=== PATIENT | male | born 1960 | race Caucasian/White ===

== ENCOUNTER 2019-10-19 11:29 | Inpatient (IN) | payer OTHER, SELFPAY ==
[2019-10-19] VITALS (24 sets, daily range): BP systolic 144–189; BP diastolic 85–121; PULSE 63–90; RESP 13–35; TEMP 36.8–37.2; O2SAT 83–96; BMI 42.9
--- NOTE | 2019-10-19 12:08 | ECG_ITS ---
Measurements Intervals [place] Rate: 84 P: 51 MD: 160 QRS: 66 QRSD: 121 T: 147 QT: 379 QTc: 448 SINUS RHYTHM POSSIBLE LEFT ATRIAL ENLARGEMENT [-0.1mV P WAVE IN V1/V2] PROBABLE INFERIOR MYOCARDIAL INFARCTION [35 ms Q WAVE IN II/aVF], PROBABLY OLD MODERATE T-WAVE ABNORMALITY, CONSIDER LATERAL ISCHEMIA Compared to ECG 06/25/2019 06:06:36 T-wave abnormality now present Possible ischemia now present First degree AV block no longer present Myocardial infarct finding still present Electronically Signed On 10-19-2019 15:28:37 REGULATORY LAW SPECIALIST by Sherrie Macias M.D. [id number]
[2019-10-19 12:39] LABS: Add Urine Microscopic? YES; Bilirubin Urine Neg (NEGATIVE); Blood Urine Neg (Negative); Glucose Urine UA Norm (Normal); Ketones Urine Negative (Negative); Leukocyte Esterase Urine Negative (Negative); Nitrate Urine Negative (Negative); Protein Urine Trace (Negative); Urine Appearance Clear (CLEAR); Urine Color Yellow (Yellow); Urobilinogen Urine Norm (Negative); pH Urine 5 (5-7)
[2019-10-19 12:45] LABS: RBC Urine 0-4 /hpf (0-2); Squamous Epithelial Cell Urine 0-4 (0-5)
[2019-10-19 12:46] LABS: Add Urine Culture? No; Bacteria Urine TRACE; Mucus Urine TRACE
[2019-10-19 13:06] LABS: Basophils # 0.1 10^3/uL (0.0-0.1); Basophils % 0.7 %; Eosinophils # 0.3 10^3/uL (0.0-0.8); Eosinophils % 3.7 %; Hematocrit 41.3 % (42.0-52.0); Hemoglobin 13.3 g/dL (11.7-16.6); Lymphocytes # 1.8 10^3/uL (0.8-4.8); Mean Corpuscular HGB Conc 32.2 g/dL (30.0-36.0); Mean Corpuscular Hemoglobin 27.7 pg (28.0-34.0); Mean Corpuscular Volume 85.9 fL (80-94); Mean Platelet Volume 10.6 fL (7.4-10.4); Monocytes # 0.5 10^3/uL (0.2-0.9); Monocytes % 6.7 %; Neutrophils # 4.6 10^3/uL (1.8-7.7); Neutrophils % 63.6 %; Nucleated Red Blood Cells % 0 %; Platelet Count 194 10^3/cmm (130-400); Red Blood Count 4.81 10^6/uL (4.1-5.3); Red Cell Distribution Width 13.8 % (12.1-15.1); White Blood Count 7.2 10^3/uL (4.0-10.0)
[2019-10-19 13:39] LABS: Alanine Aminotransferase 22 U/L (0-41); Albumin Level 3.6 g/dL (3.5-5.2); Alkaline Phosphatase 37 IU/L (40-130); Anion Gap 16.1 (5-19); Aspartate Amino Transferase 18 U/L (0-40); Blood Urea Nitrogen 15 mg/dL (8-23); Calcium 9.6 mg/dL (8.5-10.5); Carbon Dioxide 23 mmol/L (22-29); Chloride 105 mmol/L (98-107); Globulin 3.9 g/dL (1.3-4.6); Glomerular Filtration Rate 51.7 mL/min (90-130); Glucose 151 mg/dL (65-115); Magnesium 2.2 mg/dL (1.7-2.3); NT Pro B Type Natriuretic Pept 2110 pg/mL (0-125); Potassium 4.1 mmol/L (3.5-5.1); Sodium 140 mmol/L (136-145); Thyroid Stimulating Hormone 1.02 uIU/mL (0.27-4.20); Total Bilirubin 0.7 mg/dL (0.15-1.2); Total Protein 7.5 g/dL (6.6-8.7)
[2019-10-19 13:58] LABS: Troponin(5th) Baseline 289 ng/mL (0-15)
--- NOTE | 2019-10-19 14:00 | ED_ITS ---
Entered by Ruthann Lino, acting as scribe for Link Alvarado MD, [facility] [place]PI - SOB/Dyspnea General: Chief Complaint: Shortness of Breath/Dyspnea Stated Complaint: SOB swelled left thumb Time Seen by Provider: 10/19/19 14:00 Source: patient Mode of arrival: ambulatory Limitations: no limitations History of Present Illness: HPI Narrative: 59 yo Male presents to ED with complaint of shortness of breath. Pt states that it isn't necessarily his heart, but he is having shortness of breath and was barely able to make it walking into the ED room from the waiting room. 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 Pt states that 6 months ago he was playing basketball and now he can barely pick and shovel man a basketball. Pt states that he does get chest pain when he becomes short of breath. Pt states if he eats meat, bread, pasta or anything hard he has difficulty breathing laying down. Pt states that he has pain when laying down. Pt states that he has had a TIA in the past and has had a bypass surgery before but there are no records because it was too far back and the hospital got rid of them. Pt states that he was assigned to Dr. Macias the last time he was here but he never went to follow up with her. MD elicited complaint: shortness of breath and chest pain Onset (ago): month(s) Context: occurred during exertion Timing: intermittent Exacerbating factors: lying flat, exertion and other (eating) Relieving factors: upright position Associated symptoms: Reports chest pain and orthopnea; Deny abdominal pain, fever(s), nausea, polydipsia, polyuria or vomiting Treatment prior to arrival: none Review of Systems General: Reports: 10 or more systems reviewed and unremarkable except in HPI and below Const: Denies: fever, chills or body aches Eyes: Denies: change in vision or blurry vision ENMT: Denies: throat pain, enlarged tonsils, painful swallowing, hoarseness, mouth pain or swelling of lips/tongue Card: Reports: chest pain, shortness of breath on exertion and shortness of breath when lying down Resp: Reports: shortness of breath; Denies: productive cough or non-productive cough GI: Denies: abdominal pain, nausea or vomiting : Denies: flank pain, painful urination, urinary frequency, urinary urgency or urinary hesitancy Musc: Denies: neck pain, back pain or extremity swelling Skin/Breast: Denies: rash, itching or redness Neuro: Denies: headache, numbness in extremities or weakness in extremities Endo: Denies: excessive urination, excessive thirst or tired all the time PFSH ED PFSH: Medical History (Updated 10/19/19 @ 21:50 by Link Alvarado MD, [facility] [place]) Compartment syndrome of left lower extremity Non-smoker Toe fracture, left Surgical History (Updated 10/19/19 @ 21:24 by Amrit Chavis MD) Hx of tonsillectomy S/P CABG x 2 Social History Smoking and tobacco status: never smoked Physical Exam Const: COMMON NORMALS: no apparent distress, average body habitus, oriented x3, no limitations, healthy appearing, alert and well nourished HENMT: COMMON NORMALS: normocephalic, head/scalp atraumatic and moist oral mucous membranes HEAD & SCALP: normocephalic and atraumatic Eye: COMMON NORMALS: PERRL, EOMs intact bilaterally, conjunctivae normal and no scleral icterus CONJUNCTIVA: Yes conjunctivae normal PUPIL: Yes PERRL Neck/C-Spine: COMMON NORMALS: full ROM, supple, no meningeal signs, no JVD and no carotid bruits Chest: COMMONS NORMALS: inspection of chest normal and palpation of chest normal Resp: COMMON NORMALS: normal respiratory effort, no retractions, no use of accessory muscles, clear to auscultation bilaterally and percussion normal AUSCULTATION: clear to auscultation bilaterally PERCUSSION: percussion normal Cardio: COMMON NORMALS: no JVD, regular rate, regular rhythm, S1 normal heart sound, S2 normal heart sound, no gallops, no clicks, no murmurs, no rub and peripheral pulses 2+ throughout RATE: regular rate RHYTHM: regular rhythm HEART SOUNDS: S1 normal and S2 normal PERIPHERAL PULSES: pulses 2+ throughout GI: COMMON NORMALS: normal to inspection, nondistended, normoactive bowel sounds, soft to palpation, non-tender, no hepatosplenomegaly, no masses and no bruits PALPATION: Yes soft and Yes no hepatosplenomegaly : COMMON NORMALS: Yes no CVA tenderness BLADDER/KIDNEY EXAM: Yes no CVA tenderness Back/Pelvis: COMMON NORMALS: no CVA tenderness Extremity: COMMON NORMALS: normal to inspection, full ROM, normal capillary refill, no calf tenderness and no pedal edema OTHER: Left thumb with a 4 cm cystic lesion consistent duct is not tender, inflamed, or warm. Neuro: COMMON NORMALS: oriented x3 SENSORIUM/ORIENTATION: Yes alert ME NINGEAL SIGNS: Yes no meningeal signs Skin: COMMON NORMALS: no rashes or lesions noted, no wounds, skin turgor normal, no jaundice, no petechiae and no mottling GENERAL SKIN EXAM: no rashes or lesions noted and turgor normal Course Consultations: Consultation #1: Dr. Thomas, Hospitalist-left message Left 2nd message at 16:24 He kindly accepted patient to his service, however we found out that the patient was Dr. Chavis's patient so we will call Dr. Chavis Time: 15:20 Consultation #2: Dr. Chavis, his primary care provider. He kindly accepted patient to his service. Vital Signs: Vital signs: Vital Signs Temperature 99.0 F 10/19/19 18:02 Pulse Rate 77 10/19/19 21:00 Respiratory Rate 21 H 10/19/19 21:00 Blood Pressure 188/108 10/19/19 21:00 Pulse Oximetry 91 10/19/19 21:00 MDM - SOB/Dyspnea MDM Narrative: Medical decision making narrative: 59-year-old male with progressive dyspnea on exertion that has been going on for 3 to 4 months. However in the last few days his dyspnea on exertion has gotten much worse and he is barely able to walk a few feet before he gets absolutely short of breath. He has a prior history of an [place] 20 years ago status post CABG. He last saw his three dimensional map modeler about 14 years ago. 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 The patient had critically elevated troponins and a delta at that was borderline significant. I believe the patient has cardiac ischemia will benefit from further cardiac work-up with stress test and possible PCI. He is therefore being admitted for further cardiac work-up. Lab Data: Labs: Lab Results 10/19/19 10/19/19 10/19/19 Range/Units 12:16 12:49 12:49 WBC 7.2 (4.0-10.0) 10^3/ uL RBC 4.81 (4.1-5.3) 10^6/u L Hgb 13.3 (11.7-16.6) g/dL Hct 41.3 L (42.0-52.0) % MCV 85.9 (80-94) fL MCH 27.7 L (28.0-34.0) pg MCHC 32.2 (30.0-36.0) g/dL RDW 13.8 (12.1-15.1) % Plt Count 194 (130-400) 10^3/c mm MPV 10.6 H (7.4-10.4) fL Neut % (Auto) 63.6 % Lymph % (Auto) 25.0 % [place] % (Auto) 6.7 % Eos % (Auto) 3.7 % Baso % (Auto) 0.7 % Neut # (Auto) 4.6 (1.8-7.7) 10^3/u L Lymph # (Auto) 1.8 (0.8-4.8) 10^3/u L [place] # (Auto) 0.5 (0.2-0.9) 10^3/u L Eos # (Auto) 0.3 (0.0-0.8) 10^3/u L Baso # (Auto) 0.1 (0.0-0.1) 10^3/u L Nucleated RBC % (a uto) 0 % Nucleated RBCs # 0.0 /100WBC D-Dimer (0-0.59) ug/mIFE U Sodium 140 (136-145) mmol/L Potassium 4.1 (3.5-5.1) mmol/L Chloride 105 (98-107) mmol/L Carbon Dioxide 23 (22-29) mmol/L Anion Gap 16.1 (5-19) BUN 15 (8-23) mg/dL Creatinine 1.4 H (0.7-1.2) mg/dL GFR Calculation 51.7 L (90-130) mL/min Glucose 151 H (65-115) mg/dL Calcium 9.6 (8.5-10.5) mg/dL Magnesium 2.2 (1.7-2.3) mg/dL Total Bilirubin 0.7 (0.15-1.2) mg/dL AST 18 (0-40) U/L ALT 22 (0-41) U/L Alkaline Phosphata se 37 L (40-130) IU/L Troponin T Baselin e (0-15) ng/mL Troponin T 120 Min wrangell (0-15) ng/mL Delta Troponin T (0-10) ABS# NT-Pro-B Natriuret Pep 2110 H (0-125) pg/mL Total Protein 7.5 (6.6-8.7) g/dL Albumin 3.6 (3.5-5.2) g/dL Globulin 3.9 (1.3-4.6) g/dL TSH 1.02 (0.27-4.20) uIU/ mL Urine Color Yellow (Yellow) Urine Appearance Clear (CLEAR) Urine pH 5 (5-7) Ur Specific Gravit y 1.020 (1.005-1.030) Urine Protein Trace (Negative) Urine Glucose (UA) Norm (Normal) Urine Ketones Negative (Negative) Urine Blood Neg (Negative) Urine Nitrate Negative (Negative) Urine Bilirubin Neg (NEGATIVE) Urine Urobilinogen Norm (Negative) mg/dL Ur Leukocyte La ase Negative (Negative) Urine RBC 0-4 H (0-2) /hpf Urine WBC None (0-5) /hpf Ur Squamous Epith Cells 0-4 H (0-5) Urine Bacteria Trace (NONE) Urine Mucus Trace 10/19/19 10/19/19 10/19/19 Range/Units 12:49 14:34 14:34 WBC (4.0-10.0) 10^3/ uL RBC (4.1-5.3) 10^6/u L Hgb (11.7-16.6) g/dL Hct (42.0-52.0) % MCV (80-94) fL MCH (28.0-34.0) pg MCHC (30.0-36.0) g/dL RDW (12.1-15.1) % Plt Count (130-400) 10^3/c mm MPV (7.4-10.4) fL Neut % (Auto) % Lymph % (Auto) % [place] % (Auto) % Eos % (Auto) % Baso % (Auto) % Neut # (Auto) (1.8-7.7) 10^3/u L Lymph # (Auto) (0.8-4.8) 10^3/u L [place] # (Auto) (0.2-0.9) 10^3/u L Eos # (Auto) (0.0-0.8) 10^3/u L Baso # (Auto) (0.0-0.1) 10^3/u L Nucleated RBC % (a uto) % Nucleated RBCs # /100WBC D-Dimer 0.45 (0-0.59) ug/mIFE U Sodium (136-145) mmol/L Potassium (3.5-5.1) mmol/L Chloride (98-107) mmol/L Carbon Dioxide (22-29) mmol/L Anion Gap (5-19) BUN (8-23) mg/dL Creatinine (0.7-1.2) mg/dL GFR Calculation (90-130) mL/min Glucose (65-115) mg/dL Calcium (8.5-10.5) mg/dL Magnesium (1.7-2.3) mg/dL Total Bilirubin (0.15-1.2) mg/dL AST (0-40) U/L ALT (0-41) U/L Alkaline Phosphata se (40-130) IU/L Troponin T Baselin e 289 H* (0-15) ng/mL Troponin T 120 Min wrangell 298.1 H (0-15) ng/mL Delta Troponin T 9.1 (0-10) ABS# NT-Pro-B Natriuret Pep (0-125) pg/mL Total Protein (6.6-8.7) g/dL Albumin (3.5-5.2) g/dL Globulin (1.3-4.6) g/dL TSH (0.27-4.20) uIU/ mL Urine Color (Yellow) Urine Appearance (CLEAR) Urine pH (5-7) Ur Specific Gravit y (1.005-1.030) Urine Protein (Negative) Urine Glucose (UA) (Normal) Urine Ketones (Negative) Urine Blood (Negative) Urine Nitrate (Negative) Urine Bilirubin (NEGATIVE) Urine Urobilinogen (Negative) mg/dL Ur Leukocyte La ase (Negative) Urine RBC (0-2) /hpf Urine WBC (0-5) /hpf Ur Squamous Epith Cells (0-5) Urine Bacteria (NONE) Urine Mucus Imaging Data^: CXR: Radiologist's impression: [place] [address] XRay Report Signed Patient: Sharon Pichardo #: [id number] : 1960Acct#:[id number] Age/Sex: 59 / MADM Date: 10/19/19 Loc: [facility]/Bed: Attending Dr: Ordering Provider/Ordering MD: Link Alvarado MD, [facility] [place] Date of Service: 10/19/19 Procedure(s): XR chest 2V* 41927 Accession Number(s): [id number] Report Number: [id number] PROCEDURE INFORMATION: Exam: XR Chest, 2 Views Exam date and time: 10/19/2019 2:29 PM Age: 59 years old Clinical indication: Shortness of breath; Prior surgery; Surgery date: 6+ months; Surgery type: Bypass, date not provided TECHNIQUE: Imaging protocol: XR of the chest Views: 2 views. COMPARISON: CR Chest 1 [place] [id number] 06/24/2019 11:15 AM FINDINGS: Lungs: Possible COPD with moderate flattening of hemidiaphragms. Pleural space: Blunting of the costophrenic angles suggesting small pleural effusions. Heart/Mediastinum: Prior CABG with sternotomy sutures in place. Moderate cardiomegaly, unchanged. Bones/joints: Thoracolumbar region dextroscoliosis, chronic. XR/XR chest 2V* [id number] IMPRESSION: 1.) Possible small pleural effusions. 2.) Additional chronic findings including prior CABG and moderate cardiomegaly. Probable COPD. Dictated By:Milo Powell MD Signed By:Milo Powell MDSigned Date/Time:10/19/191544 DD/ 43 EKG Data^: EKG 1: Attestation: I personally reviewed and interpreted this EKG as follows: EKG Interpretation Date: 10/19/19 EKG interpretation time: 11:45 Prior EKG tracings: not available for review Computer Generated Interpretation: [address] [address] Electrocardiograph Report Signed Patient: Sharon Pichardo #: [id number] : 1960Acct#:[id number] Age/Sex: 59 / MADM Date: 10/19/19 Loc: [facility]/Bed: Attending Dr: Ordering Provider/Ordering MD: Timothy Dubose NP Date of Service: 10/19/19 Procedure(s): ECG 12 lead EKG Accession Number(s): [id number] Report Number: [id number] Measurements Intervals [place] Rate: 72 P: 49 TN: 172 QRS: 61 QRSD: 116 T: 166 QT: 375 QTc: 411 SINUS RHYTHM POSSIBLE INFERIOR MYOCARDIAL INFARCTION , PROBABLY OLD [30 ms Q WAVE IN II/aVF] MODERATE T-WAVE ABNORMALITY, CONSIDER LATERAL ISCHEMIA [-0.1+ mV T WAVE IN I/ I/aVL/V5/V6] Compared to ECG 10/19/2019 11:45:37 No significant changes Electronically Signed On 10-19-2019 15:35:03 TECHNICAL FELLOW by Sherrie Macias M.D. EKG 2: Attestation: I personally reviewed and interpreted this EKG as follows: EKG Interpretation Date: 10/19/19 EKG interpretation time: 13:52 Interpretation: unchanged from earlier today Discharge Plan Discharge Patient Disposition: Admitted As Inpatient Admit Provider: Eben Thomas Clinical Impression: STUART (dyspnea on exertion), Elevated troponin Condition: Stable Interventions: ED Discharge Assessment Last Done: 10/19/19 18:02 Discharge Date/Time: 10/19/19 18:05 Coding Level of Care Code ED Pig Sticker for Chg Fwd Exam Comprehensive The documentation recorded by the Zoie childs Carmen, accurately reflects the service I personally performed and the decisions made by Christiano bobby Adegoke I, MD, [facility] [place] Oct 19, 2019 11:29
--- NOTE | 2019-10-19 14:08 | ECG_ITS ---
Measurements Intervals [place] Rate: 72 P: 49 TX: 172 QRS: 61 QRSD: 116 T: 166 QT: 375 QTc: 411 SINUS RHYTHM POSSIBLE INFERIOR MYOCARDIAL INFARCTION , PROBABLY OLD [30 ms Q WAVE IN II/aVF] MODERATE T-WAVE ABNORMALITY, CONSIDER LATERAL ISCHEMIA [-0.1+ mV T WAVE IN I/ I/aVL/V5/V6] Compared to ECG 10/19/2019 11:45:37 No significant changes Electronically Signed On 10-19-2019 15:35:03 DISPLAY FABRICATION SUPERVISOR by Sherrie Macias M.D. [email or web address]
--- NOTE | 2019-10-19 14:13 | XRR_ITS ---
PROCEDURE INFORMATION: Exam: XR Chest, 2 Views Exam date and time: 10/19/2019 2:29 PM Age: 59 years old Clinical indication: Shortness of breath; Prior surgery; Surgery date: 6+ months; Surgery type: Bypass, date not provided TECHNIQUE: Imaging protocol: XR of the chest Views: 2 views. COMPARISON: CR Chest 1 [place] [id number] 06/24/2019 11:15 AM FINDINGS: Lungs: Possible COPD with moderate flattening of hemidiaphragms. Pleural space: Blunting of the costophrenic angles suggesting small pleural effusions. Heart/Mediastinum: Prior CABG with sternotomy sutures in place. Moderate cardiomegaly, unchanged. Bones/joints: Thoracolumbar region dextroscoliosis, chronic. XR/XR chest 2V* [id number] IMPRESSION: 1.) Possible small pleural effusions. 2.) Additional chronic findings including prior CABG and moderate cardiomegaly. Probable COPD.
--- NOTE | 2019-10-19 14:43 | PC.NURSE ---
Patient reported to ED with complaints of increased shortness of breath. Patient reports that it is worse when he tried to lay down flat, with exertion, and seems to worsen in the evening.
[2019-10-19 14:53] LABS: Troponin 5 2HR Delta 9.1 ABS# (0-10)
[2019-10-19 15:01] LABS: D Dimer 0.45 ug/mIFEU (0-0.59)
[2019-10-19 15:08] LABS: Troponin 5 2HR 298.1 ng/mL (0-15)
--- NOTE | 2019-10-19 19:30 | PC.NURSE ---
1820 recd from e.d. per w/c with no c/o at this time. instructed to undress and don wilder.
[2019-10-19 19:36] LABS: Troponin 5 6HR 302.4 ng/mL (0-15); Troponin 5 6HR Delta 13.4 ng/L (0-12)
--- NOTE | 2019-10-19 19:37 | PM.HP ---
Providers/Chief Complaint Admitting Physician: Eben Thomas MD Chief Complaint: SOB swelled left thumb History of Present Illness Yahir Pichardo is a 59 year old male who presented to the emergency department secondary to gradual worsening shortness of breath over the last number of weeks. The [place] [facility] [place] The patient had a angiogram done that showed that only 1 vessel of his 5 vessel bypass was open. He had an ejection fraction 40 to 45%. It was felt that medical management was his only option at this time. The patient was supposed to follow-up as an outpatient to get his blood pressure under control and he failed to follow-up. The patient now notes that he has had significant dyspnea even with walking across the street and trying to do his job. Because of this he presented to the emergency department. He currently has no further chest pains. The patient does have significant dyspnea with exertion, however not with rest. Patient denies any abdominal pain. He does have difficulty with swallowing and that food seems to get stuck in his lower esophagus. The patient denies any nausea or vomiting. He denies any constipation diarrhea. He denies any dysuria. The patient does have a lesion on his left thumb that seems to be growing. It has been there for at least the last 4 to 5 months. He continues to get larger. He did try to everette it at one time and some blood came out, however it healed back and continues to grow. Medications/Allergies Home Medications Medication Instructions Recorded Confirmed Last Taken Type aspirin 81 mg PO DAILY 10/19/19 10/19/19 10/19/19 History atorvastatin 40 mg PO DAILY 10/19/19 10/19/19 10/18/19 History clonidine HCl 0.1 mg PO Q6H PRN 10/19/19 10/19/19 Unknown History clopidogrel [Plavix] 75 mg PO DAILY 10/19/19 10/19/19 10/19/19 History diphenhydramine HCl [Allergy 25 - 50 mg PO BEDTIME 10/19/19 10/19/19 10/18/19 History (diphenhydramine)] glyburide 5 mg PO BID 10/19/19 10/19/19 10/19/19 History isosorbide mononitrate 60 mg PO DAILY 10/19/19 10/19/19 10/19/19 History lisinopril 20 mg PO BID 10/19/19 10/19/19 10/19/19 History metformin 500 mg PO BID 10/19/19 10/19/19 10/19/19 History naproxen sodium [Aleve] 220 mg PO BID PRN 10/19/19 10/19/19 Unknown History nitroglycerin [Nitrostat] 0.4 mg SUBLINGUAL Q5M PRN 10/19/19 10/19/19 Unknown History paroxetine HCl [Paxil] 20 mg PO DAILY 10/19/19 10/19/19 10/19/19 History prazosin 1 mg PO BEDTIME 10/19/19 10/19/19 10/18/19 History Allergies Allergy/AdvReac Type Severity Reaction Status Date / Time No Known Allergies Allergy Verified 10/19/19 11:42 PFSH Acute PFSH: Medical History (Updated 10/19/19 @ 21:24 by Amrit Chavis MD) Compartment syndrome of left lower extremity Non-smoker Toe fracture, left Surgical History (Updated 10/19/19 @ 21:24 by Amrit Chavis MD) Hx of tonsillectomy S/P CABG x 2 Social History Smoking and tobacco status: never smoked Vitals/I&O/Wt Last Vital Signs Temp 99.0 F 10/19/19 18:02 Pulse 79 10/19/19 19:25 Resp 21 H 10/19/19 19:25 BP 179/107 10/19/19 19:25 Pulse Ox 92 10/19/19 19:25 Weight last 48 hrs Weight 290 lb 12.8 oz Physical Exam Narrative: EXAM NARRATIVE: General: Alert and oriented x3 Eyes: Pupils equal round and reactive to light and accommodation Mouth: Mucous membranes moist, pharynx non-erythematous Cardiac: Regular rate and rhythm without murmurs Lungs: Clear to auscultation bilaterally without wheezes, crackles or rhonchi Abdomen: Soft, non-tender, no hepatosplenomegaly appreciated Extremities: +1 pitting edema in the bilateral lower extremities. There is a 3 to 4 cm lesion on the left thumb that appears to have significant blood flow to it. It is nontender and raised approximately 1.5 cm off the surface of the skin. Data : 10/19/19 12:49 10/19/19 12:49 A&P Additional A&P Information 1. Dyspnea -patient has significant dyspnea even with walking 15 feet. The underlying cause is not clear at this time, however he does have signs of an elevated BNP as well as small bilateral pleural effusions and swelling in his bilateral lower extremities. I will place him on Lasix 40 mg IV twice a day and see if this helps. This could also be secondary to underlying coronary artery disease. 2. Coronary artery disease -the patient has significant coronary disease and a history of CABG x220 years ago based [place] [facility] [place] time he did not have good sites for a follow-up CABG if necessary. They recommended treating him medically at that point. That being said there are some lesions that were 60% blocked and a possibility of stent placement may be present. I will have Dr. Hull see the patient to give recommendations. We will get an echocardiogram to see if his ejection fraction has worsened. His troponin has slightly increased with a small elevation in the delta. This could be consistent with an NSTEMI. The patient has been given treatment dose Lovenox x1 and we will follow to see how the patient does overnight. 3. Diabetes mellitus -the patient has uncontrolled diabetes and we will check an A1c in the morning. His blood sugars have been elevated. He is currently taking oral medications. We will switch to insulin while in the hospital. 4. Hypertensive urgency -the patient has been having blood pressures in the 180s systolic and he is having significant dyspnea. It may be that the elevated troponins are secondary to hypertension. If that is the case then this would be a hypertensive emergency. We will treat his blood pressures with IV labetalol as needed. The patient will be restarted on his home medications as well. He was not taking amlodipine as prescribed and this may be 1 of the reasons his blood pressure has been out of control. 5. Thumb mass -the patient has a mass on his thumb that is concerning in nature. I do not know if this is a melanoma or a benign lesion. I will start off with an x-ray. I spoke with Dr. Elizabeth, and orthopedics, and she recommended that we get an MRI to further evaluate it. She also recommended that the patient be seen by a hand surgeon so that if a biopsy is done, that they can plan out the total treatment plan along with the biopsy. This will need to be set up as an outpatient. 6. Difficulty swallowing -the patient has been having difficulty swallowing and did not follow-up with me in the clinic as an outpatient. I spoke with Dr. Pinto who agreed to see the patient and consider an upper endoscopy. We will get barium swallow study done while in the hospital and follow-up with an outpatient upper endoscopy depending on results. 7. Prophylaxis -the patient is currently on Plavix and we will add Lovenox for treatment dose x1, then follow-up with Lovenox for prophylaxis dose 24 hours from now depending on his course. Attestations Medical Necessity Statement*: The patient will be here for greater than 2 midnights due to treatment of the above issues. Coding Level of Care Code Acute Sandwich And Drink Cart Operator for Germain Grimaldo
[2019-10-19] MEDS: FUROsemide 10 mg/mL SDV 4mL 40 MG IVP (19:52)
[2019-10-19] MEDS: labetalol 5 mg/mL SDV 20mL 10 MG IVP (19:57)
[2019-10-19] MEDS: enoxaparin 30 mg/0.3 mL Syringe SUBCUT (20:09)
[2019-10-19] MEDS: enoxaparin 100 mg/mL Syringe SUBCUT (20:10)
[2019-10-19] MEDS: prazosin 1 mg Capsule PO (21:27)
[2019-10-19 21:43] LABS: Glucose Point of Care 76 mg/dL (70-110)
[2019-10-20] VITALS (15 sets, daily range): BP systolic 131–185; BP diastolic 70–134; PULSE 66–85; RESP 10–25; TEMP 36.4–36.8; O2SAT 93–96
[2019-10-20] MEDS: labetalol 5 mg/mL SDV 20mL 10 MG IVP ×3 (00:26→15:11)
[2019-10-20 04:13] LABS: Basophils # 0.1 10^3/uL (0.0-0.1); Basophils % 0.9 %; Eosinophils # 0.3 10^3/uL (0.0-0.8); Hematocrit 41.5 % (42.0-52.0); Hemoglobin 13.4 g/dL (11.7-16.6); Lymphocytes # 2.3 10^3/uL (0.8-4.8); Lymphocytes % 35.8 %; Mean Corpuscular HGB Conc 32.3 g/dL (30.0-36.0); Mean Corpuscular Volume 83.7 fL (80-94); Mean Platelet Volume 10.7 fL (7.4-10.4); Monocytes # 0.5 10^3/uL (0.2-0.9); Monocytes % 7.9 %; Neutrophils # 3.2 10^3/uL (1.8-7.7); Neutrophils % 50.2 %; Nucleated Red Blood Cells % 0 %; Platelet Count 205 10^3/cmm (130-400); Red Blood Count 4.96 10^6/uL (4.1-5.3); Red Cell Distribution Width 13.7 % (12.1-15.1); White Blood Count 6.4 10^3/uL (4.0-10.0)
[2019-10-20 04:35] LABS: Estmated Average Glucose 134; Hemoglobin A1C 6.3 % (4.0-6.0)
[2019-10-20 04:44] LABS: Alanine Aminotransferase 22 U/L (0-41); Albumin Level 4.1 g/dL (3.5-5.2); Alkaline Phosphatase 39 IU/L (40-130); Anion Gap 17.9 (5-19); Aspartate Amino Transferase 19 U/L (0-40); Blood Urea Nitrogen 16 mg/dL (8-23); Calcium 9.8 mg/dL (8.5-10.5); Carbon Dioxide 24 mmol/L (22-29); Chloride 103 mmol/L (98-107); Globulin 3.5 g/dL (1.3-4.6); Glomerular Filtration Rate 51.7 mL/min (90-130); Glucose 111 mg/dL (65-115); Magnesium 2.3 mg/dL (1.7-2.3); NT Pro B Type Natriuretic Pept 1804 pg/mL (0-125); Phosphorus 4.2 mg/dL (2.5-4.5); Potassium 3.9 mmol/L (3.5-5.1); Sodium 141 mmol/L (136-145); Total Bilirubin 0.6 mg/dL (0.15-1.2); Total Protein 7.6 g/dL (6.6-8.7)
--- NOTE | 2019-10-20 06:41 | PC.NURSE ---
SHIFT SUMMARY PT HAS BEEN ALERT AND ORIENTATED. PT BLOOD PRESSURE HAS BEEN BELOW 170 AT TIMES, PT RECEIVED TWO DOSES OF LABATOLOL. PT HAS HAD ADEQUATE URINE OUTPUT. PT HAS HAD SOME LEG CRAMPING, WAS ABLE TO WALK AND GET THEM TO SUBSIDE, PT STATES LEGS ARE STILL SORE. PT ABLE TO GET UP AD FEDERICO TO BSC. PT HAS NOT COMPLAINED OF ANY CHEST PAINS, DR DARBY WAS NOTIFIED OF CRITICAL LAB VALUES WHEN THEY CAME THROUGH. PT IV REMAINS PATENT.
[2019-10-20 06:44] LABS: Glucose Point of Care 107 mg/dL (70-110)
--- NOTE | 2019-10-20 07:00 | XR_ITS ---
WS: [id number] FINGER LEFT TECHNIQUE: 3 views of the left First finger CLINICAL INFORMATION: Thumb mass COMPARISON: None. FINDINGS: Bony left thumb is normal in appearance. No acute fractures. Mild DIP narrowing with moderate degener ative arthritis. Soft tissue mass involving the volar overlying the distal phalanx. No bony erosion. Soft tissue nodule measures 2.3 x 1.4 CM. XR/XR finger LT min 2V [id number] IMPRESSION: Nodular soft tissue density volar left thumb distally overlying the distal phal anx. No bony erosion. Soft tissue nodule measures 2.3 x 1.4 cm
--- NOTE | 2019-10-20 07:09 | PM.CONSULT ---
Providers/Reason For Consult Consulting Physican/Specialty*: MEGHANN Hull MD/cardiology Reason for Consult*: Patient with history of coronary artery disease, no presenting with features of congestive heart failure. Elevated troponin T. Requesting Physcian: Dr. Chavis Attending Physician: Eben Thomas MD History of Present Illness History of Present Illness Yahir Pichardo is a 59 year old male with a history of coronary disease, status post coronary bypass surgery, is admitted to hospital through the emergency room, where he presented with complaints of progressive shortness of breath. Patient had coronary artery bypass surgery in 1999 at the [facility] in [place], [place]. The details are not available. He was admitted to the hospital in May of last year with a more or less similar symptoms. At that time, he underwent a cardiac catheterization which revealed occlusion of the venous graft to the RCA. The SOTO to the LAD was found to be patent. The circumflex artery was found to be completely occluded after giving of obtuse marginal arteries. Based on the angiogram findings, it was opted to treat him medically. According to the patient he never had any chest pain. He been having the shortness of breath almost for a year now. Shortness of breath has been progressively getting worse. Yesterday he decided to come to the hospital because of the worsening of the shortness of breath, mostly with exertion. He also had some amount of orthopnea and? PND. Denies any fever, chills or cough. No other associated symptoms. 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 He just got back from [place], driving his truck. He has not no leg pain or chest pains. He has a history of hypertension, diabetes and dyslipidemia. He has been compliant with medications. He was seen by doctors in in May while he was in this hospital. He had a follow-up appointment in her office but was unable to keep it because of his job. Review of Systems Narrative: CONSTITUTIONAL: No fever or chills. [] EYES: No blurring of vision or other visual disturbances lately. [] ENT: No hoarseness of voice, auditory disturbances or sore throat. [] CARDIOVASCULAR: As mentioned above. RESPIRATORY: No significant cough. GASTROINTESTINAL: No hematemesis or melena. He has some difficulty in swallowing solid food in the lower part of his esophagus. This has been chronic. Has a questionable history of hiatal hernia. GENITOURINARY: No dysuria or hematuria. INTEGUMENTARY: No skin rashes or history of skin cancer. NEURO: No transient ischemic attacks or amaurosis. PSYCHIATRIC: No history of psychosis or major depression. HEMATOLOGIC: No bleeding disorders or significant anemia. ENDOCRINE: No history of polyuria or polydipsia. MUSCULOSKELETAL: No recent joint pain or swelling. ALLERGY/IMMUNOLOGY: As mentioned above. Meds/Allergies Home Medications and Allergies Home Medications Medication Instructions Recorded Confirmed Type aspirin 81 mg PO DAILY 10/19/19 10/19/19 History atorvastatin 40 mg PO DAILY 10/19/19 10/19/19 History clonidine HCl 0.1 mg PO Q6H PRN 10/19/19 10/19/19 History clopidogrel [Plavix] 75 mg PO DAILY 10/19/19 10/19/19 History diphenhydramine HCl [Allergy 25 - 50 mg PO BEDTIME 10/19/19 10/19/19 History (diphenhydramine)] glyburide 5 mg PO BID 10/19/19 10/19/19 History isosorbide mononitrate 60 mg PO DAILY 10/19/19 10/19/19 History lisinopril 20 mg PO BID 10/19/19 10/19/19 History metformin 500 mg PO BID 10/19/19 10/19/19 History naproxen sodium [Aleve] 220 mg PO BID PRN 10/19/19 10/19/19 History nitroglycerin [Nitrostat] 0.4 mg SUBLINGUAL Q5M PRN 10/19/19 10/19/19 History paroxetine HCl [Paxil] 20 mg PO DAILY 10/19/19 10/19/19 History prazosin 1 mg PO BEDTIME 10/19/19 10/19/19 History Allergies Allergy/AdvReac Type Severity Reaction Status Date / Time No Known Allergies Allergy Verified 10/19/19 11:42 Current Medications Current Medications Generic Name Dose Route Start Last Admin Trade Name Freq PRN Reason Stop Dose Admin Enoxaparin Sodium 100 mg 10/19/19 19:45 10/19/19 20:10 Lovenox SUBCUT 100 mg ONCE DARREN Administration Enoxaparin Sodium 30 mg 10/19/19 19:45 10/19/19 20:09 Lovenox SUBCUT 30 mg ONCE DARREN Administration Furosemide 40 mg 10/19/19 19:30 10/19/19 19:52 Lasix IVP 40 mg Q12H DARREN Administration Insulin Aspart 0 unit 10/19/19 21:00 10/19/19 21:26 Novolog SUBCUT Not Given WM&BEDTIME DARREN Protocol Labetalol HCl 10 mg 10/19/19 19:16 10/20/19 00:26 Trandate IVP 10 mg PRN PRN Administration hyperten Prazosin HCl 1 mg 10/19/19 21:00 10/19/19 21:27 Minipress PO 1 mg BEDTIME DARREN Administration PFSH Acute PFSH: Medical History Acute on chronic diastolic (congestive) heart failure Atherosclerotic heart disease of [place] coronary artery without angina pectoris Benign essential hypertension with target blood pressure below 140/90 Compartment syndrome of left lower extremity Non-smoker Toe fracture, left Type 2 diabetes mellitus Surgical History Hx of tonsillectomy S/P CABG x 2 Social History Smoking and tobacco status: never smoked Vitals/I&O/Wt Last Vital Signs Temp 97.9 F 10/20/19 00:31 Pulse 85 10/20/19 06:30 Resp 17 10/20/19 06:30 BP 167/92 10/20/19 06:30 Pulse Ox 93 10/20/19 04:07 10/19/19 10/20/19 10/20/19 22:59 06:59 14:59 Intake Total 120 / 120 Output Total 300 / 300 2000 / 2300 Balance -300 / -300 -1880 / -2180 Weight last 48 hrs Weight 290 lb 12.8 oz Physical Exam Narrative: EXAM NARRATIVE: GENERAL: The patient is alert and oriented times three. Not in any acute distress. HEENT: No significant pallor, icterus or lymphadenopathy. The pupils are reactant to light. Oral cavity: There are no mucous membrane lesions. Funduscopic examination: The fundus is not visualized NECK: Trachea appears to be central. No masses noted. No JVD or thyromegaly appreciated. No carotid bruit. RESPIRATORY: Chest is symmetrical. No intercostals muscle retraction or any accessory muscle activation. There is no chest wall tenderness. Breath sounds are heard bilaterally. No rales or rhonchi heard. No evidence of any consolidation. BREASTS: Deferred. HEART: The PMI not be palpated. No other palpable precordial events. S1 and S2 are normal. No S3 or S4 heard. No pericardial rub or any click heard. ABDOMEN: No vessel pulsations or distention. No tenderness. No organomegaly appreciated. No abdominal bruit. Bowel sounds are normally heard. : Deferred. RECTAL: Deferred. LYMPHATIC: No lymphadenopathy noted in the neck or groin. EXTREMITIES: No edema or cyanosis. No clubbing. He has features of chronic venous stasis in both lower extremities. Has some hyperpigmented skin. The peripheral pulses are palpable but weak bilaterally, especially the dorsalis pedis and posterior tibial. He has a soft tissue mass at the tip of the left thumb on the ventral aspect MUSCULOSKELETAL: No acute joint deformities or swelling SKIN: Pigmented skins of the lower extremities. NEUROPSYCHIATRIC: The patient is alert and oriented x3. Appears to be in a good mood. The higher functions are grossly within normal limits. No tremors or rigidity noted. Data Imaging^: Cardiac catheterization: My impression: Done on 06/25/2019 The left main coronary artery has 3 lesions. There is a 30% ostial lesion, 50% proximal and 60% distal left main lesions. The LAD is moderately diffusely diseased and then is occluded past the first septal branch. To and fro motion from the HEIDY graft is noted. There is a small diagonal which comes off just prior to the occlusion. There is a small ramus intermedius branch noted. Circumflex is occluded proximally. 2 small marginal branches are seen. The right coronary artery is occluded at its origin. 1 vein graft was located. There was only one graft marker. This is a graft to the right coronary artery and is occluded proximally. The HEIDY graft is patent. It is a very tortuous graft and is constructed to the left anterior descending. There is antegrade and retrograde flow to the LAD. The LAD is diffusely diseased. The septal branches of the LAD and the distal LAD provide collateral flow to the distal right coronary artery which is seen upon injection of the graft. Echo: My impression: Done on 06/25/2019 1. This is a technically difficult study. Ultrasound enchancing agent (optison) was used. 2. Normal left ventricular cavity size. Moderate concentric left ventricular hypertrophy. Normal left ventricular systolic function. Left ventricular ejection fraction is estimated at 55 % visually and 51% by modified biplane method. No diagnostic regional wall motion abnormalities. Grade 2 diastolic dysfunction with mildly elevated filling pressure. 3. Mildly increased left atrial size. 4. No significant valvular abnormalities. 5. No prior similar studies to compare. EKG^: EKG 1: My Interpretation: Normal sinus rhythm with diffuse nonspecific ST-T changes. Which is old inferior wall myocardial infarction. A&P Assessment and plan (1) Acute on chronic diastolic (congestive) heart failure: The etiology of the heart failure is not clear. He has a history of coronary disease and coronary artery bypass surgery. He had only 1 patent bypass grafts based on the angiogram in May 2019. Possibly a progression of disease, worsening LV function, hypertensive heart disease causing diastolic dysfunction, etc. are considerations. For further evaluation of his symptoms, a repeat echocardiogram would be helpful. We will try to optimize the antihypertensive medications. Status: Acute Code(s): I50.33 - Acute on chronic diastolic (congestive) heart failure (2) Atherosclerotic heart disease of [place] coronary artery without angina pectoris: Patient had a cardiac catheterization in May 2019. The results are as mentioned below. Possibility of coronary ischemia causing the current symptoms is a consideration. For further evaluation of his coronary status as well as the graft status, a myocardial perfusion imaging would be appropriate. This may be performed after appropriately treating the decompensated heart failure. Status: Acute Qualifiers: [place] vs. transplanted heart: [place] heart Qualified Code(s): I25.10 - Atherosclerotic heart disease of [place] coronary artery without angina pectoris Code(s): I25.10 - Atherosclerotic heart disease of [place] coronary artery without angina pectoris (3) Elevated troponin: Most likely patient had a type II myocardial infarction. Non-ST lesion myocardial infarction cannot be excluded. He has a delta of 13.4. His CRP also slightly elevated. Patient may be kept on the current dose of Lovenox. Status: Acute Code(s): R79.89 - Other specified abnormal findings of blood chemistry (4) Benign essential hypertension with target blood pressure below 140/90: Patient's blood pressure is a stage II. May try to optimize his antihypertensive medications. I may add carvedilol 6.25 mg p.o. now and twice daily in addition to his other current medications. Status: Acute Code(s): I10 - Essential (primary) hypertension (5) Type 2 diabetes mellitus: Optimizing the medication for diabetes also would be appropriate. I may add Jardiance 10 mg p.o. 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 Thank you for the opportunity to evaluate this patient and make these recommendations Consult Attestations Medical Necessity Statement: Patient requires continued hospital stay for close monitoring and further management Coding Level of Care Code Acute Nurses Supervisor for [facility] Fwd Diagnoses Acute on chronic diastolic (congestive) heart failure I50.33 Atherosclerotic heart disease of [place] coronary artery without angina pectoris I25.10 [place] vs. transplanted heart: [place] heart Elevated troponin R79.89 Benign essential hypertension with target blood pressure below 140/90 I10 Type 2 diabetes mellitus E11.65 Diabetes mellitus mcfp insulin use: without mcfp use Diabetes mellitus complication status: with hyperglycemia
--- NOTE | 2019-10-20 07:42 | USCV_ITS ---
Yahir Pichardo Age: 59 Gender: M : 1960 Exam Date: 10/20/2019 14:07 Ordering Phys: Amrit Chavis MD Technologist: Ismael Jade [place] [facility] [place]: DYSPNEA ELEVATED TROPONIN BP: 160 / 91 HR: 82 Rhythm: Sinus Technical Quality: Poor because of body habitus MEASUREMENTS (Male / Female) Normal Values 2D ECHO LV Diastolic Diameter PLAX 5.9 cm 4.2 - 5.9 / 3.9 - 5.3 cm LV Systolic Diameter PLAX 4.2 cm IVS Diastolic Thickness 1.4 cm 0.6 - 1.0 / 0.6 - 0.9 cm IVS Systolic Thickness 2.1 cm LVPW Diastolic Thickness 1.5 cm 0.6 - 1.0 / 0.6 - 0.9 cm LVPW Systolic Thickness 1.5 cm LVOT Diameter 2.0 cm LV Ejection Fraction 2D Teich 54.3 % LV Ejection Fraction MOD 2C 67.5 % LV Ejection Fraction 2C AL 67.5 % LA Diameter 3.6 cm LA Width 4.3 cm LA Height 6.5 cm RA Width 4.4 cm RA Height 4.9 cm M-MODE LV Diastolic Diameter MM 6.0 cm 4.2 - 5.9 / 3.9 - 5.3 cm LV Systolic Diameter MM 4.3 cm LV Ejection Fraction MM Teich 54.4 % IVS Diastolic Thickness MM 1.1 cm 0.6 - 1.0 / 0.6 - 0.9 cm IVS Systolic Thickness MM 1.5 cm LVPW Diastolic Thickness MM 1.3 cm 0.6 - 1.0 / 0.6 - 0.9 cm LVPW Systolic Thickness MM 1.6 cm RV Diastolic Diameter MM 2.2 cm Aortic Annulus Diameter 3.5 cm LA Ao Ratio MM 1.0 MV E Point Septal Separation 1.7 cm DOPPLER AV Peak Velocity 90.0 cm/s LVOT Peak Velocity 97.0 cm/s AV Area Cont Eq vti 3.6 cm squared AV Area Cont Eq pk 3.3 cm squared MV Area PHT 5.0 cm squared Mitral E to A Ratio 0.9 MV E' Velocity 66.0 cm/s Mitral E to MV E' Ratio 2.0 Mitral E to LV E' Lateral Ratio 1.1 Mitral E to LV E' Septal Ratio 17.2 TR Peak Velocity 119.0 cm/s TR Peak Gradient 5.6 mmHg TV Peak E Velocity 78.0 cm/s Right Atrial Pressure 3.0 mmHg Pulmonary Artery Systolic Pressu 8.7 mmHg PV Peak Velocity 118.0 cm/s FINDINGS Left Ventricle Examination is technically poor. The ventricle is poorly seen. It is likely normal in size. There are no obvious wall motion disturbances. Diastolic function cannot be determined. Ejection fraction is probably lower limit of normal around 55%. Right Ventricle Normal right ventricular size and systolic function. Right ventricle not well visualized. Normal right ventricular systolic pressure. Right Atrium Mildly increased right atrial size. Left Atrium Mildly increased left atrial size. Mitral Valve Mitral valve not well visualized. Structurally normal mitral valve. No mitral valve regurgitation. Aortic Valve Aortic valve not well visualized. No aortic valve stenosis. Tricuspid Valve Structurally normal tricuspid valve. Trace tricuspid valve regurgitation. Pulmonic Valve Pulmonic valve not well visualized. Pericardium Normal pericardium without effusion. Aorta Normal ascending aorta dimension. CONCLUSIONS Examination is technically poor. The ventricle is poorly seen. It is likely normal in size. There are no obvious wall motion disturbances. Diastolic function cannot be determined. Ejection fraction is probably lower limit of normal around 55%. Mildly increased right atrial size. Mildly increased left atrial size. Technically limited study. No significant chamber abnormalities. There has been no change since the previous echo done less than [address] David Whittington MD (Electronically Signed) Final Date: 20 October 2019 17:43 S
--- NOTE | 2019-10-20 08:03 | FL_ITS ---
WS: [id number] ESOPHAGRAM TECHNIQUE: Double contrast examination was performed with thin and thick barium. Upright and LEWIS imag es were obtained. CLINICAL INFORMATION: Difficulty swallowing COMPARISON: None. FINDINGS: Prior sternotomy and CABG Swallowing: Normal. No evidence of aspiration penetration. Esophagus: Normal morphology and motility. No stricture or mass. Small hiatal hernia. Gastroesophageal reflux: Reflux is seen into the upper and mid esophagus worse in the supine position Fluoroscopy time: 3.6 minutes. FL/FL barium swallow [id number] IMPRESSION: 1. Normal swallowing. No evidence of aspiration or penetration. 2. Active reflux is seen into the upper mid esophagus worse in the supine posi tion. 3. Small hiatal hernia with mild mucosal irregularity at the GE junction likel y due to esophagitis. This could be further evaluated with endoscopy. 4. Prior sternotomy and CABG.
--- NOTE | 2019-10-20 08:03 | P.PN_ITS ---
Subjective Subjective: Interval history: The patient denies any chest pains at this time. He continues to have shortness of breath with exertion. The patient denies any abdominal pain. Vitals/I&O/Wt Last Vital Signs Temp 97.9 F 10/20/19 00:31 Pulse 85 10/20/19 06:30 Resp 17 10/20/19 06:30 BP 167/92 10/20/19 06:30 Pulse Ox 93 10/20/19 04:07 10/19/19 10/20/19 10/20/19 22:59 06:59 14:59 Intake Total 120 / 120 Output Total 300 / 300 2000 / 2300 Balance -300 / -300 -1880 / -2180 Weight last 48 hrs Weight 290 lb 12.8 oz Physical Exam Narrative: EXAM NARRATIVE: General: Alert and oriented x3 Eyes: Pupils equal round and reactive to light and accommodation Mouth: Mucous membranes moist, pharynx non-erythematous Cardiac: Regular rate and rhythm without murmurs Lungs: Clear to auscultation bilaterally without wheezes, crackles or rhonchi Abdomen: Soft, non-tender, no hepatosplenomegaly appreciated Extremities: +1 pitting edema in the bilateral lower extremities. There is a 3 to 4 cm lesion on the left thumb that appears to have significant blood flow to it. It is nontender and raised approximately 1.5 cm off the surface of the skin. Data : 10/20/19 03:31 10/20/19 03:31 A&P Additional A&P Information 1. Dyspnea -patient has significant dyspnea even with walking 15 feet. The underlying cause is not clear at this time, however he does have signs of an elevated BNP as well as small bilateral pleural effusions and swelling in his bilateral lower extremities. Continue with Lasix therapy. We will get a repeat echocardiogram and consider nuclear stress test tomorrow morning. Dr. Hull feels that this may be secondary to diastolic heart failure. The patient has not had a sleep study since 2001. He will certainly need this set up as an outpatient. 2. Coronary artery disease -the patient has significant coronary disease and a history of CABG x220 years ago based on an angiogram done in May 2019 at [facility] [place]. At that time he did not have good sites for a follow-up CABG if necessary. They recommended treating him medically at that point. That being said there are some lesions that were 60% blocked and a possibility of stent placement may be present. I appreciate Dr. Hull seeing the patient. We will get an echocardiogram to see if his ejection fraction has worsened. His troponin has slightly increased with a small elevation in the delta. This could be consistent with an NSTEMI. The patient has been given treatment dose Lovenox x1. Continue with 40 mg daily. 3. Diabetes mellitus -the patient's A1c was 6.3. We will give insulin shots while he is in the hospital. 4. Hypertensive urgency -the patient's blood pressure continues to be elevated. We will increase amlodipine to 5 mg daily. Continue with labetalol IV as needed. 5. Thumb mass -the patient has a mass on his thumb that is concerning in nature. I do not know if this is a melanoma or a benign lesion. X-ray was obtained this morning. I spoke with Dr. Elizabeth, and orthopedics, and she recommended that we get an MRI to further evaluate it. She also recommended that the patient be seen by a hand surgeon so that if a biopsy is done, that they can plan out the total treatment plan along with the biopsy. This will need to be set up as an outpatient. 6. Difficulty swallowing -the patient has been having difficulty swallowing and did not follow-up with me in the clinic as an outpatient. I spoke with Dr. Pinto who agreed to see the patient and consider an upper endoscopy. We will get barium swallow study done while in the hospital and follow-up with an outpatient upper endoscopy depending on results. 7. Prophylaxis -the patient is currently on Plavix and we will add Lovenox 40 mg for prophylaxis dose. Attestations Medical Necessity Statement*: The patient continues need hospitalization due to the above issues. He may be moved to the cardiac stepdown unit if a bed is available. Coding Level of Care Code Acute Tire Service Technician for [facility] Grimaldo
[2019-10-20] MEDS: FUROsemide 10 mg/mL SDV 4mL 40 MG IVP ×2 (08:11→19:47)
[2019-10-20] MEDS: atorvastatin 40 mg Tablet PO (08:22)
[2019-10-20] MEDS: clopidogrel 75 mg Tablet PO (08:22)
[2019-10-20] MEDS: amlodipine 5 mg Tablet PO (08:22)
[2019-10-20] MEDS: lisinopril 20 mg Tablet PO ×2 (08:23→17:31)
[2019-10-20] MEDS: isosorbide mononitrate ER 60 mg Tablet PO (08:23)
[2019-10-20] MEDS: PARoxetine 20 mg Tablet PO (08:23)
[2019-10-20] MEDS: aspirin 81 mg Chew Tablet PO (08:23)
--- NOTE | 2019-10-20 10:10 | PC.CHAP ---
Pastoral Care Encounter/Spiritual Assessment Type of Contact [] Declined chainstitch binder visit [] Patient/Family/Request visit [] Outpatient visit [] Follow-up visit [] Physician referral [] Code/Alert [x] Routine visit [] Staff referral [] Actively dying [] Patient sleeping [] Family support [] [] Out of room [] Palliative care [] [] Receiving care in room [] Pre-surgical visit [] Trauma [] Long length of stay [x] ICU visit [] Other: Relational/Emotional Strength [] Patient feels connected with others/family/visitors/staff [] Distress [] Loneliness/isolation [] Abandonment Spirituality of Patient [x] Person of Domonique [] Attends Oriental Orthodox of their Domonique [x] Believes in Prayer [] Reads Bible or Orthodox materials [] There are Spiritual issues to be addressed Tetryl Screen Operator Interventions [x] Prayer [] Active listening [] Non-anxious presence [] Spiritual/emotional support [] Crisis/trauma care [] Spiritual counseling [] Bereavement support [] Provided bereavement packet [] Provided Bible/devotional materials [] Provided toy/stuffed animal, coloring book to patient or family member [] Provided Communion [] Anointing/[place] [] Salvation [x Completed spiritual assessment [] Other: Impact on Illness or Injury [] Angry [] Fearful [] Anxious [] Often cries [] Exhaustion [] Unable to work [] Unable to attend confucianism [] Unable to walk/stand [] Unable to read [] Unable to drive [] Unable to eat/drink [] Unable to sleep [] Unable to be with family [] Patient intubated [] Other: Summary thumb xray- next MRI- then draw fluid Patient has no idea the cause of this issue. Began last May, and continued to get larger. Time spent with patient 20 min
--- NOTE | 2019-10-20 15:53 | PC.NURSE ---
RECEIVED LABETALOL 10MG FOR BP 185/92 @1507 RECHECKED @ 1545 BP 166/[address] VANN REGARDING CONSULT NOTE TODAY & MEDICATIONS THAT HE MAY WANT TO START. DID NOT LEAVE MESSAGE ON VOICEMAIL. PT NOTIFIED OF TRANSFER TO CSU RM 112-2.
--- NOTE | 2019-10-20 16:08 | PC.NURSE ---
REPORT CALLED TO EDITH VALENTE. BELONGINGS SENT WITH PT. WISHED WELL.
[2019-10-20 16:11] LABS: Glucose Point of Care 191 mg/dL (70-110)
[2019-10-20 16:42] LABS: Glucose Point of Care 152 mg/dL (70-110)
[2019-10-20] MEDS: enoxaparin 40 mg/0.4 mL Syringe SUBCUT (19:49)
[2019-10-20] MEDS: prazosin 1 mg Capsule PO (19:59)
[2019-10-20 20:00] LABS: Glucose Point of Care 145 mg/dL (70-110)
[2019-10-21 03:58] LABS: Basophils # 0.1 10^3/uL (0.0-0.1); Basophils % 0.9 %; Eosinophils # 0.3 10^3/uL (0.0-0.8); Eosinophils % 4.1 %; Hematocrit 43.6 % (42.0-52.0); Hemoglobin 13.8 g/dL (11.7-16.6); Lymphocytes # 2.1 10^3/uL (0.8-4.8); Mean Corpuscular HGB Conc 31.7 g/dL (30.0-36.0); Mean Corpuscular Hemoglobin 27.2 pg (28.0-34.0); Monocytes # 0.7 10^3/uL (0.2-0.9); Monocytes % 8.8 %; Neutrophils # 4.4 10^3/uL (1.8-7.7); Neutrophils % 57.9 %; Nucleated Red Blood Cells % 0 %; Platelet Count 202 10^3/cmm (130-400); Red Blood Count 5.07 10^6/uL (4.1-5.3); Red Cell Distribution Width 13.8 % (12.1-15.1); White Blood Count 7.6 10^3/uL (4.0-10.0)
[2019-10-21 04:00] VITALS: BP 130/76; PULSE 63; RESP 16; TEMP 36.6; O2SAT 90
[2019-10-21 04:22] LABS: Alanine Aminotransferase 20 U/L (0-41); Albumin Level 3.8 g/dL (3.5-5.2); Alkaline Phosphatase 36 IU/L (40-130); Aspartate Amino Transferase 16 U/L (0-40); Blood Urea Nitrogen 17 mg/dL (8-23); Carbon Dioxide 25 mmol/L (22-29); Chloride 101 mmol/L (98-107); Globulin 4.1 g/dL (1.3-4.6); Glomerular Filtration Rate 56.3 mL/min (90-130); Glucose 172 mg/dL (65-115); Magnesium 2.4 mg/dL (1.7-2.3); NT Pro B Type Natriuretic Pept 1303 pg/mL (0-125); Sodium 138 mmol/L (136-145); Total Bilirubin 0.5 mg/dL (0.15-1.2); Total Protein 7.9 g/dL (6.6-8.7)
--- NOTE | 2019-10-21 06:10 | NMCV_ITS ---
NM maddie perf SPECT r/s* [id number] Yahir Pichardo Age: 59 Gender: M : 1960 Exam Date: 10/21/2019 07:08 Ordering Phys: Amrit Chavis MD Technologist: RENU Lin Exam Location: [facility] Indications: SOB SWELLED LEFT THUMB STRESS TEST Please see separate stress test report in [facility] for full findings IMAGE PROTOCOL Rest/Stress 1 Lexiscan Day Radiopharmaceutical Dose (mCi) Administration Site Administered by Rest: Tc-99m 11.0 IV RENU Mccracken Sestamibi Stress:Tc-99m 33.0 IV RENU Mccracken Sestamibi Rest: 21-Oct-2019 60 Discovery 630 Stress: 21-Oct-2019 30 Discovery 630 0.4mg Lexiscan. Images obtained in supine and prone position. SPECT RESULTS Technical Quality: Excellent Raw Data Analysis: Normal Image Corrections: No attenuation or motion correction applied Summed Stress Score: 22 Summed Rest Score: 17 Summed Difference Score: 5 PERFUSION FINDINGS Large area of fixed perfusion defect noted in basal to distal inferior and inferolateral wall suggestive of old myocardial infarction versus scarring. FUNCTIONAL RESULTS (calculated via Gated SPECT) Stress Image LV EF (%): 46 Stress EDV (mL):248 TID: 0.78 Stress ESV (mL):134 Rest Image LV EF (%): 46 FUNCTIONAL FINDINGS: Inferior and inferolateral wall akinesis IMPRESSIONS Large area of old myocardial infarction versus scarring noted in basal to distal inferior and inferolateral wall suggestive of possible lesion in dominant RCA or circumflex territory. There was no ischemia noted. EKG segment will be documented separately. Tamar Melvin MD (Electronically Signed) Final Date: 21 October 2019 10:55 S
[2019-10-21 06:42] LABS: Glucose Point of Care 145 mg/dL (70-110)
[2019-10-21] MEDS: regadenoson 0.4 Mg/5 ml Syringe IVP (08:06)
[2019-10-21 08:08] VITALS: BP 174/103; PULSE 77
[2019-10-21] MEDS: FUROsemide 10 mg/mL SDV 4mL 40 MG IVP (09:22)
[2019-10-21] MEDS: amlodipine 10 mg Tablet PO (09:22)
[2019-10-21] MEDS: aspirin 81 mg Chew Tablet PO (09:23)
[2019-10-21] MEDS: atorvastatin 40 mg Tablet PO (09:23)
[2019-10-21] MEDS: clopidogrel 75 mg Tablet PO (09:23)
[2019-10-21] MEDS: isosorbide mononitrate ER 60 mg Tablet PO (09:24)
[2019-10-21] MEDS: PARoxetine 20 mg Tablet PO (09:25)
[2019-10-21] MEDS: lisinopril 20 mg Tablet PO ×2 (09:26→18:13)
[2019-10-21 10:11] VITALS: BP 130/76; PULSE 75; RESP 26
--- NOTE | 2019-10-21 11:06 | P.PN_ITS ---
Subjective Subjective: Interval history: 59 yo man with CAD s/p CABGx 2, hypertension, dysipidemia, DM-2 well known to me from his last visit. He presented for worsening dyspnea and intermitted chest pain. He also had leg swelling. He is being diuresed and underwent stress test today. He is chest pain free. Leg swelling and SOB has improved. Medications: Reviewed: Yes Medication Review Details: Current Medications Aminophylline (Aminophylline) 25 mg IVP Q2M PRN PRN Reason: see dose instructions Stop: 10/22/19 07:04 Amlodipine Besylate (Norvasc) 10 mg PO DAILY [facility] Last Admin: 10/21/19 09:22 Dose: 10 mg Documented by: Aspirin (Aspirin Chewable) 81 mg PO DAILY [facility] Last Admin: 10/21/19 09:23 Dose: 81 mg Documented by: Atorvastatin Calcium (Lipitor) 40 mg PO DAILY [facility] Last Admin: 10/21/19 09:23 Dose: 40 mg Documented by: Clopidogrel Bisulfate (Plavix) 75 mg PO DAILY [facility] Last Admin: 10/21/19 09:23 Dose: 75 mg Documented by: Dextrose (D50w) 25 ml IVP ONCE PRN; Protocol PRN Reason: hypoglycemia protocol Dextrose (D50w) 50 ml IVP PRN PRN; Protocol PRN Reason: hypoglycemia protocol Enoxaparin Sodium (Lovenox) 40 mg SUBCUT Q24H [facility] Last Admin: 10/20/19 19:49 Dose: 40 mg Documented by: Furosemide (Lasix) 40 mg IVP Q12H [facility] Last Admin: 10/21/19 09:22 Dose: 40 mg Documented by: Glucagon (Glucagen) 1 mg IM ONCE PRN; Protocol PRN Reason: Adult Acute Hypoglycemia Prot. Dextrose (D5w) 500 mls @ 100 mls/hr IV ONCE PRN; Protocol PRN Reason: Adult Acute Hypoglycemia Prot Insulin Aspart (Novolog) 0 unit SUBCUT WM&BEDTIME [facility]; Protocol Last Admin: 10/21/19 09:21 Dose: 4 unit Documented by: Isosorbide Mononitrate (Imdur) 60 mg PO DAILY [facility] Last Admin: 10/21/19 09:24 Dose: 60 mg Documented by: Labetalol HCl (Trandate) 10 mg IVP Q4H PRN PRN Reason: hypertension Last Admin: 10/20/19 15:11 Dose: 10 mg Documented by: Lisinopril (Prinivil) 20 mg PO BID [facility] Last Admin: 10/21/19 09:26 Dose: 20 mg Documented by: Nitroglycerin (Nitrostat) 0.4 mg SUBLINGUAL Q5M PRN PRN Reason: CHEST PAIN Nitroglycerin (Nitrostat) 0.4 mg SUBLINGUAL Q5M PRN PRN Reason: CHEST PAIN Stop: 10/22/19 07:04 Ondansetron HCl (Zofran) 4 mg IVP Q2M PRN PRN Reason: NAUSEA Paroxetine HCl (Paxil) 20 mg PO DAILY [facility] Last Admin: 10/21/19 09:25 Dose: 20 mg Documented by: Potassium Chloride (Klor-Con 10) 20 meq PO DAILY [facility] Last Admin: 10/21/19 09:22 Dose: 20 meq Documented by: Prazosin HCl (Minipress) 1 mg PO BEDTIME [facility] Last Admin: 10/20/19 19:59 Dose: 1 mg Documented by: Vitals/I&O/Wt Last Vital Signs Temp 97.9 F 10/21/19 04:00 Pulse 75 10/21/19 10:11 Resp 26 H 10/21/19 10:11 BP 130/76 10/21/19 10:11 Pulse Ox 90 10/21/19 04:00 10/20/19 10/21/19 10/21/19 22:59 06:59 14:59 Intake Total 222 / 1302 Output Total 1150 / 2150 775 / 2925 Balance -1150 / -1070 -553 / -1623 Weight last 48 hrs Weight 290 lb 12.8 oz Physical Exam Const: COMMON NORMALS: no apparent distress, oriented x3 and alert GENERAL APPEARANCE: cooperative, comfortable, well kempt and well hydrated HENMT: COMMON NORMALS: hearing grossly normal bilaterally, external ears normal and moist oral mucous membranes EXTERNAL EAR: Yes external ears normal Eye: COMMON NORMALS: EOMs intact bilaterally and no scleral icterus Neck/C-Spine: COMMON NORMALS: no lymphadenopathy, supple and no JVD Resp: COMMON NORMALS: clear to auscultation bilaterally AUSCULTATION: clear to auscultation bilaterally, no crackles, no rales, no rhonchi and no wheezes Cardio: COMMON NORMALS: no JVD, regular rate, regular rhythm, S1 normal heart sound, S2 normal heart sound and peripheral pulses 2+ throughout PALPATION: normal PMI RATE: regular rate RHYTHM: regular rhythm HEART SOUNDS: S1 normal, S2 normal, no click, no gallops and no murmurs BRUITS: no carotid bruits PERIPHERAL PULSES: pulses 2+ throughout, radial pulses present, posterior tibial pulses present and dorsalis pedis pulses present GI: COMMON NORMALS: soft to palpation AUSCULTATION: Yes normoactive bowel sounds PALPATION: Yes soft, No tender, No guarding and No rigid Extremity: GENERAL: No clubbing, No cyanosis, Yes edema (trace-1+ bilateral edema) and No pallor Neuro: COMMON NORMALS: oriented x3, CN's II-XII intact bilaterally and no focal motor deficits SENSORIUM/ORIENTATION: Yes alert Psych: COMMON NORMALS: thought process normal and speech normal APPEARANCE: Yes well kempt SPEECH: Yes normal speech MOOD & AFFECT: Yes euthymic mood THOUGHT PROCESS: normal thought process THOUGHT CONTENT: Yes normal thought content Data : 10/21/19 03:08 10/21/19 03:08 Other Labs: Laboratory Tests 10/21/19 03:08 Calcium 10.0 Magnesium 2.4 H Total Bilirubin 0.5 AST 16 ALT 20 Alkaline Phosphatase 36 L NT-Pro-B Natriuret Pep 1303 H Total Protein 7.9 Albumin 3.8 Globulin 4.1 Echo: I personally reviewed and interpreted this imaging study as follows: My impression: (10/20/19) CONCLUSIONS Examination is technically poor. The ventricle is poorly seen. It is likely normal in size. There are no obvious wall motion disturbances. Diastolic function cannot be determined. Ejection fraction is probably lower limit of normal around 55%. Mildly increased right atrial size. Mildly increased left atrial size. Technically limited study. No significant chamber abnormalities. There has been no change since the previous echo. Lexiscan MPI: I personally reviewed and interpreted this imaging study as follows: My impression: (10/21/19) PERFUSION FINDINGS Large area of fixed perfusion defect noted in basal to distal inferior and inferolateral wall suggestive of old myocardial infarction versus scarring. FUNCTIONAL RESULTS (calculated via Gated SPECT) Stress Image LV EF (%): 46 Stress EDV (mL):248 TID: 0.78 Stress ESV (mL):134 Rest Image LV EF (%): 46 FUNCTIONAL FINDINGS: Inferior and inferolateral wall akinesis IMPRESSIONS Large area of old myocardial infarction versus scarring noted in basal to distal inferior and inferolateral wall suggestive of possible lesion in dominant RCA or circumflex territory. There was no ischemia noted. EKG segment will be documented separately. A&P Assessment and plan (1) Acute on chronic diastolic (congestive) heart failure: Patient was not on lasix as an outpatient. This likely is a result of dietary indescrition. -continue IV lasix, possibly transition to PO lasix in morning. -No ischemia on stress test. Status: Acute Code(s): I50.33 - Acute on chronic diastolic (congestive) heart failure (2) Atherosclerotic heart disease of [place] coronary artery without angina pectoris: CAD s/p CABG x2 several years back. cardiac catheterization in 05/2019 revealed occlusion of the venous graft to the RCA. The SOTO to the LAD was found to be patent. The circumflex artery was found to be completely occluded after giving of obtuse marginal arteries, RCA occluded with collaterals from left system and LAD occluded after septal branch. Mild to moderate lesion in LM. Based on the angiogram findings, it was opted to treat him medically. -Continue ASA, plavix, statin and imdur. -No further testing warranted as this point. Continue medicxal management. Status: Acute Qualifiers: [place] vs. transplanted heart: [place] heart Qualified Code(s): I25.10 - Atherosclerotic heart disease of [place] coronary artery without angina pectoris Code(s): I25.10 - Atherosclerotic heart disease of [place] coronary artery without angina pectoris (3) Elevated troponin: Likely NSTEMI type 2 in setting of decompensated CHF. EKG unchanged when compared to previous EKG. Status: Acute Code(s): R79.89 - Other specified abnormal findings of blood chemistry (4) Benign essential hypertension with target blood pressure below 140/90: BP still elevated. Status: Acute Code(s): I10 - Essential (primary) hypertension (5) Type 2 diabetes mellitus: Status: Acute Qualifiers: Diabetes mellitus supervisor intermediates insulin use: without retirement use Diabetes mellitus complication status: with hyperglycemia Qualified Code(s): E11.65 - Type 2 diabetes mellitus with hyperglycemia Code(s): E11.9 - Type 2 diabetes mellitus without complications Additional A&P Information ABDOUL on Stage III kidney disease in setting of cardiorenal syndrome : improving with diuresis. Soft tissue mass on the left thumb Obesity Attestations Medical Necessity Statement*: Needs hospital stay for management of decomp ensated CHF Coding Level of Care Code Acute Toaster Operator for Chg Fwd Diagnoses Acute on chronic diastolic (congestive) heart failure I50.33 Atherosclerotic heart disease of [place] coronary artery without angina pectoris I25.10 [place] vs. transplanted heart: [place] heart Elevated troponin R79.89 Benign essential hypertension with target blood pressure below 140/90 I10 Type 2 diabetes mellitus E11.65 Diabetes mellitus retirement insulin use: without retirement use Diabetes mellitus complication status: with hyperglycemia
[2019-10-21 11:29] VITALS: BP 149/85; PULSE 65; RESP 10; O2SAT 90
[2019-10-21 11:34] LABS: Glucose Point of Care 215 mg/dL (70-110)
--- NOTE | 2019-10-21 13:45 | ECG_ITS ---
NAME OF STUDY: LEXISCAN SESTAMIBI STRESS TEST INDICATION: Chest Pain PROCEDURE: At the baseline, the blood pressure was 155/95 mmHg with a heart rate of 62 bpm. The electrocardiogram showed normal sinus rhythm. Possible old inferior myocardial infarction. Moderate T wave abnormality consider lateral ischemia. The Lexiscan was infused over a period of 20 seconds. A total of 0.4 milligrams of Lexiscan was infused. The stress phase was continued for a total of 5 minutes. Heart rate at the end of the stress phase was 67 bpm with a blood pressure of 171/93 mmHg. The EKG at the peak infusion revealed sinus rhythm with no significant ST-T wave changes. Sestamibi was injected 20 seconds after the Lexiscan infusion. Blood pressure at the end of the recovery phase was 172/95 mmHg with a heart rate of 72 beats per minute. CONCLUSION: 1. No significant EKG changes with the LexiScan infusion. 2. No LexiScan induced chest pain or cardiac arrhythmia. 3. Normal blood pressure and heart rate response. 4. Sestamibi/sestamibi perfusion scan pending; see separate report. Electronically Signed On 10-21-2019 13:41:01 FOILING MACHINE ADJUSTER by Sherrie Macias M.D. [email or web address]
[2019-10-21 15:13] VITALS: BP 126/71; PULSE 68; RESP 19; O2SAT 93
--- NOTE | 2019-10-21 15:38 | PC.RESP ---
PATIENT DOES NOT HAVE A QUALIFYING HX OF LUNG DISEASE AT THIS TIME.
[2019-10-21 16:33] LABS: Glucose Point of Care 98 mg/dL (70-110)
--- NOTE | 2019-10-21 17:50 | P.DS_ITS ---
Discharge Providers Date of Admission: 10/19/19 17:09 Date of Discharge: October 21, 2019 Attending Provider at Admission: Amrit Chavis MD Attending Provider at Discharge: Amrit Chavis MD Diagnoses at Discharge Discharge Diagnosis (1) Acute on chronic diastolic (congestive) heart failure: Status: Acute (2) Atherosclerotic heart disease of [place] coronary artery without angina pectoris: Status: Acute Qualifiers: [place] vs. transplanted heart: [place] heart Qualified Code(s): I25.10 - Atherosclerotic heart disease of [place] coronary artery without angina pectoris (3) Elevated troponin: Status: Acute (4) Benign essential hypertension with target blood pressure below 140/90: Status: Acute (5) Type 2 diabetes mellitus: Status: Acute Qualifiers: Diabetes mellitus oysterman insulin use: without oysterman use Diabetes mellitus complication status: with hyperglycemia Qualified Code(s): E11.65 - Type 2 diabetes mellitus with hyperglycemia Other Information Additional DC diagnoses/information: 1. Dyspnea secondary to fluid overload 2. Elevated troponin 3. Diabetes mellitus 4. Hypertension 5. Coronary artery disease 6. Thumb mass 7. GERD with difficulty swallowing 8. Hypersomnia Reason for Visit Reason for Visit: Reason For Visit: SOB swelled left thumb Hospital Course Hospital Course: The patient was admitted to the hospital with significant dyspnea on exertion. The patient was given Lasix IV and he diuresed well. The patient's dyspnea did gradually improve with this. The patient had small bilateral pleural effusions. He will be discharged home on Lasix 40 mg once da angelique and we will follow-up as an outpatient to see if this is sufficient. The patient is able to ambulate through the halls without significant dyspnea currently. The patient's troponins were elevated during his stay and they increased slightly consistent with a type II NSTEMI. Dr. Macias saw the patient and a cardiac stress test was done that did not show signs of significant reversibility and ischemia. There were signs of significant scarring and prior IA. Due to his prior angiogram not showing a good site for a CABG, it is felt by cardiology that a repeat CABG at this time would not be helpful. The patient has a mass on his left thumb that continues to grow and has been present for at least 4 months. I am concerned that this may be a cancer. I will refer him to hand Ortho for further evaluation, biopsy and treatment. The patient has been having difficulty with swallowing and a barium swallow study was done that showed that he does have a likely small hiatal hernia as well as some mucosal thickening in the GE junction. This is possibly due to GERD, however an upper endoscopy would be recommended to rule out a cancer. The patient is tired throughout the day and show signs of poor sleep through the night. The patient has hypersomnia. I would recommend a sleep study to rule out sleep apnea. We will get this scheduled as an outpatient as well. The patient's blood pressure was significantly elevated during his admission and this gradually improved with Lasix therapy and the addition of amlodipine 10 mg once daily. He is to continue the amlodipine as an outpatient and we may need to titrate this down as his fluid status changes. Overall the patient was advised that he needs to work on weight loss and dietary changes. We will plan to follow-up with him as an outpatient next week for further recommendations. The patient is in agreement with discharge home at this time. Physical Exam Narrative: EXAM NARRATIVE: General: Alert and oriented x3 Eyes: Pupils equal round and reactive to light and accommodation Mouth: Mucous membranes moist, pharynx non-erythematous Cardiac: Regular rate and rhythm without murmurs Lungs: Clear to auscultation bilaterally without wheezes, crackles or rhonchi Abdomen: Soft, non-tender, no hepatosplenomegaly appreciated Extremities: Trace pitting edema in the bilateral lower extremities. There is a 3 to 4 cm lesion on the left thumb that appears to have significant blood flow to it. It is non-tender and raised approximately 1.5 cm off the surface of the skin. Discharge Data Data Completed and Pending: Completed Studies During Hospitalization Category Date Time Status FL barium swallow 93010 Routine Exams 10/20/19 08:03 Completed Sestamibi Stress Test Request Routi ne Exams 10/21/19 13:45 Completed XR chest 2V* 7104 6 Stat Exams 10/19/19 14:13 Completed XR finger LT min 2V 45116 Routine Exams 10/20/19 07:00 Completed NM maddie perf SPECT r/s* 89540 Routin e Nuc Med 10/21/19 06:10 Completed CV echo complete* [id number] Routine Ultrasound 10/20/19 07:42 Completed Pending at discharge Category Date Time Status Sestamibi Stress Test Request Routi ne Exams 10/20/19 08:01 Stop Req Sestamibi Stress Test Request Routi ne Exams 10/21/19 07:00 Ordered Labs from last 24 hours 10/21/19 10/21/19 10/21/19 16:30 11:28 06:37 WBC RBC Hgb Hct MCV MCH MCHC RDW Plt Count MPV Neut % (Auto) Lymph % (Auto) [place] % (Auto) Eos % (Auto) Baso % (Auto) Neut # (Auto) Lymph # (Auto) [place] # (Auto) Eos # (Auto) Baso # (Auto) Nucleated RBC % (a uto) Nucleated RBCs # Sodium Potassium Chloride Carbon Dioxide Anion Gap BUN Creatinine GFR Calculation Glucose POC Glucose 98 215 145 Calcium Magnesium Total Bilirubin AST ALT Alkaline Phosphata se NT-Pro-B Natriuret Pep Total Protein Albumin Globulin 10/21/19 10/21/19 10/20/19 03:08 03:08 19:46 WBC 7.6 RBC 5.07 Hgb 13.8 Hct 43.6 MCV 86.0 MCH 27.2 L MCHC 31.7 RDW 13.8 Plt Count 202 MPV 11.0 H Neut % (Auto) 57.9 Lymph % (Auto) 28.0 [place] % (Auto) 8.8 Eos % (Auto) 4.1 Baso % (Auto) 0.9 Neut # (Auto) 4.4 Lymph # (Auto) 2.1 [place] # (Auto) 0.7 Eos # (Auto) 0.3 Baso # (Auto) 0.1 Nucleated RBC % (a uto) 0 Nucleated RBCs # 0.0 Sodium 138 Potassium 4.0 Chloride 101 Carbon Dioxide 25 Anion Gap 16.0 BUN 17 Creatinine 1.3 H GFR Calculation 56.3 L Glucose 172 H POC Glucose 145 Calcium 10.0 Magnesium 2.4 H Total Bilirubin 0.5 AST 16 ALT 20 Alkaline Phosphata se 36 L NT-Pro-B Natriuret Pep 1303 H Total Protein 7.9 Albumin 3.8 Globulin 4.1 Vitals: Last Vital Signs Temp 97.9 F 10/21/19 04:00 Pulse 68 10/21/19 15:13 Resp 19 H 10/21/19 15:13 BP 126/71 10/21/19 15:13 Pulse Ox 93 10/21/19 15:13 Discharge Plan Discharge Patient Disposition: Home, Self-Care Condition: Stable Prescriptions: New potassium chloride 10 mEq Tablet Extended Release 20 meq PO DAILY Qty: 30 RF: 0 amlodipine 10 mg Tablet 10 mg PO DAILY Qty: 30 RF: 1 furosemide 40 mg tablet 40 mg PO DAILY Qty: 30 RF: 0 Continued atorvastatin 40 mg Tablet 40 mg PO DAILY RF: 0 metformin 500 mg Tablet 500 mg PO BID RF: 0 clonidine HCl 0.1 mg Tablet 0.1 mg PO Q6H PRN (Reason: Blood Pressure) RF: 0 glyburide 5 mg Tablet 5 mg PO BID RF: 0 prazosin 1 mg Capsule 1 mg PO BEDTIME RF: 0 lisinopril 20 mg Tablet 20 mg PO BID RF: 0 Plavix 75 mg Tablet 75 mg PO DAILY RF: 0 isosorbide mononitrate 60 mg Tablet Extended Release 24 Hr 60 mg PO DAILY RF: 0 Paxil 20 mg Tablet 20 mg PO DAILY RF: 0 Allergy (diphenhydramine) 25 mg Tablet 25 - 50 mg PO BEDTIME RF: 0 Nitrostat 0.4 mg Tablet, Sublingual 0.4 mg SUBLINGUAL Q5M PRN (Reason: CHEST PAIN) RF: 0 aspirin 81 mg Tablet,Chewable 81 mg PO DAILY RF: 0 Discontinued naproxen sodium [Aleve] 220 mg Capsule 220 mg PO BID PRN (Reason: Pain) RF: 0 Discharge Orders: Discharge Order (Routine); Ordered 10/21/19 Ordered By: Amrit Chavis Referrals: Rell Pinto MD [Physician] - 7-10 days (Dr. Pinto's office will be contacting to schedule an appointment. If, you haven't heard from by tomorrow afternoon. Please call ) Rena Beverly MD [Referring] - 1 week (Please follow-up with Dr. Chavis for referral to [facility]) Sherrie Macias MD [Physician] - 1 week ([facility] will be contacting to schedule an follow-up appointment with Dr. Macias in 1 week. If, you haven't heard from them by tomorrow afternoon. Please call ) Amrit Chavis MD [Family Provider] - 1 week ([facility] will be contacting you to schedule an follow-up appointmen t in 1 week. If, you haven't heard by tomorrow afternoon. Please call ) Discharge Diet: As Directed Discharge Activity: Increase activity as tolerated Patient Instructions: Furosemide (By mouth), Potassium Chloride (By mouth), Amlodipine (By mouth), Dyspnea, Noncardiac Chest Pain (DC), CHF Stoplight, Chest Pain Stoplight Discharge Attestations Time Spent in Discharge Care*: greater than 30 min Specific Discharge Activities: Specific discharge activities: educating patient and documenting/other paperwork Quality Metrics Clinical Quality Measures During this hospital stay, did patient experience: AMI Clinical Trial Participant: No Contraindication to aspirin (AMI): Aspirin given Contraindication to statin: Statin prescribed Coding Level of Care Code Acute All Round Logger for Chg Fwd Diagnoses Acute on chronic diastolic (congestive) heart failure I50.33 Atherosclerotic heart disease of [place] coronary artery without angina pectoris I25.10 [place] vs. transplanted heart: [place] heart Elevated troponin R79.89 Benign essential hypertension with target blood pressure below 140/90 I10 Type 2 diabetes mellitus E11.65 Diabetes mellitus oysterman insulin use: without jail use Diabetes mellitus complication status: with hyperglycemia
[2019-10-21 18:15] VITALS: BP 112/84; PULSE 76; RESP 16; TEMP 36.8; O2SAT 97
--- NOTE | 2019-10-21 18:47 | PC.NURSE ---
IV D/C Cath tip intact. Applied pressure.
== END 2019-10-21 18:20 | disposition home or self-care (01) | DRG 280 ==
LOC: ER 14:33 → ICU 17:34 → CSU 10-20 16:20
PROVIDERS: Nurse Practitioner Family; Student in an Organized Health Care Education/Training Program; Admitting Provider Family Medicine; Emergency Provider Family Medicine; Family Provider Family Medicine; Visit Provider Family Medicine
DX: I13.0 Hypertensive heart and chronic kidney disease with heart failure and stage 1 through stage 4 chronic kidney disease, or unspecified chronic kidney disease (principal); I50.33 Acute on chronic diastolic (congestive) heart failure; I21.4 Non-ST elevation (NSTEMI) myocardial infarction; Z68.41 Body mass index [BMI] 40.0-44.9, adult; I25.10 Atherosclerotic heart disease of native coronary artery without angina pectoris; E11.65 Type 2 diabetes mellitus with hyperglycemia; I16.0 Hypertensive urgency; R22.30 Localized swelling, mass and lump, unspecified upper limb; R06.00 Dyspnea, unspecified; N18.3 Chronic kidney disease, stage 3 (moderate); E66.9 Obesity, unspecified; K21.9 Gastro-esophageal reflux disease without esophagitis; Z95.1 Presence of aortocoronary bypass graft; Z79.82 Long term (current) use of aspirin
CPT/HCPCS: 12345; 36415; 36416; 71046; 73140; 74220; 78452; 80053; 81001; 82962; 83036; 83735; 83880; 84100; 84443; 84484; 85025; 85378; 86141; 93005; 93017; 93306; 96372; 96375; 99283; A9270; A9500; J1650; J1815; J1940; J2785; J3490

== ENCOUNTER → 2021-01-27 10:15 | Outpatient (BNVA) | payer OTHER, SELFPAY | PROVIDERS: Family Provider Family Medicine; PCP Family Medicine; Visit Provider Surgery | DX: Z01.812 Encounter for preprocedural laboratory examination (principal); Z20.822 Contact with and (suspected) exposure to COVID-19 | CPT/HCPCS: 87635 ==

== ENCOUNTER 2021-02-02 06:50 | Day surgery (SDC) | payer SELFPAY ==
--- NOTE | 2021-02-02 07:00 | ANES.PREANE2 ---
Pre-Anesthetic Assessment Pre-Anesthetic Assessment: Height/Weight: Height 1.75 m Weight 137.438 kg Preop Diagnosis: Dysphagia Proposed Procedure: Operation Date: 02/02/21 08:00 Proposed Procedures p EGD/colon 50170 [id number] R13.10 Z87.19 Z12.11(Not Applicable) - Rell Pinto MD s Colonoscopy(Not Applicable) - Rell Pinto MD Familial anesthetic complications: None Was Beta Kateryna taken within 24 hours: N/A Was Clonidine taken within 24 hours: N/A Last intake: > 8 hrs Social: Social History: No alcohol and No tobacco Exam: Pre-Anes Outpt Exam: alert, oriented x 3, clear to auscultation bilaterally and regular rate & rhythm Airway: Cervical ROM: WNL MP: 3 Dentition: Other (missing) Pulmonary: Pulmonary: ST[place] Comments: Patient has been having intermittent SOB/chest tightness with exertion for well over a year, underwent cardiac work up last year, was negative. Told to lose weight, only lost 6 lbs, but still wants further work up to determine the etiology of his sob/chest pain. CV/HEM: CV/HEM: Angina (Stable) (seen by cardiology and negative for ischemia) and HTN Comments: CABG in apr Echo 2019 CONCLUSIONS Examination is technically poor. The ventricle is poorly seen. It is likely normal in size. There are no obvious wall motion disturbances. Diastolic function cannot be determined. Ejection fraction is probably lower limit of normal around 55%. Mildly increased right atrial size. Mildly increased left atrial size. Technically limited study. No significant chamber abnormalities. There has been no change since the previous echo done less than 4 months ago. 2020 Stress test IMPRESSIONS Large area of old myocardial infarction versus scarring noted in basal to distal inferior and inferolateral wall suggestive of possible lesion in dominant RCA or circumflex territory. There was no ischemia noted. EKG segment will be documented separately. : : Chronic renal Insufficiency Metabolic: Metabolic: DM and Hyperlipidemia Anesthetic Plan: ASA status: 4 Anesthesia: MAC Risk of > 500 ml blood loss (7ml/kg in children): No PFSH Anesthesia PFSH: Medical History (Updated 11/02/19 @ 16:44 by Sherrie Macias MD) Atherosclerotic heart disease of [place] coronary artery without angina pectoris Benign essential hypertension with target blood pressure below 140/90 Compartment syndrome of left lower extremity History of TIA (transient ischemic attack) Non-smoker Toe fracture, left Type 2 diabetes mellitus Surgical History Hx of tonsillectomy S/P CABG x 2 Social History Smoking and tobacco status: never smoked Data Anesthesia Cardiac Studies: No Data to Display
[2021-02-02 07:29] VITALS: BP 185/94; PULSE 79; RESP 18; TEMP 36.1; O2SAT 98
[2021-02-02 07:39] LABS: Glucose Point of Care 155 mg/dL (70-110)
--- NOTE | 2021-02-02 07:41 | W.PM.OPSUD ---
Surgery/Procedure H&P Update DATE OF PROCEDURE: February 02, 2021 DATE H&P PERFORMED: 01/24/21 H&P UPDATE INFORMATION: No changes to prior documentation PREOP DIAGNOSIS: Dysphagia, history of esophagitis, desiring screening colonoscopy. PLANNED PROCEDURE: Operation Date: 02/02/21 08:00 Proposed Procedures p EGD/colon [id number] R13.10 Z87.19 Z12.11(Not Applicable) - Rell Pinto MD s Colonoscopy(Not Applicable) - Rell Pinto MD
[2021-02-02] MEDS: sodium chloride 0.9% 1,000 ML 30 ML IV (07:42)
[2021-02-02 08:52] VITALS: BP 137/74; PULSE 65; RESP 18; TEMP 36.3; O2SAT 98
[2021-02-02 09:02] VITALS: BP 154/98; PULSE 67; RESP 18; TEMP 36.2; O2SAT 97
--- NOTE | 2021-02-02 13:04 | ANE.PACU2 ---
Inpatient post-anesthesia follow up: Airway intact: Yes Vital signs: Temperature 97.1 F Pulse Rate 67 Respiratory Rate 18 Blood Pressure 154/98 Pulse Oximetry 97 Oxygen Delivery Me thod Room Air Oxygen Flow Rate Fraction of Inspir ed Oxygen Hydration adequate: Yes Nausea and vomiting: No Pain level: 2 Mental status: Baseline
[2021-02-03 06:11] LABS: H. Pylori / CLO Test Negative
== END 2021-02-02 09:26 | disposition home or self-care (01) ==
PROVIDERS: PCP Family Medicine; Visit Provider Surgery
PROC: 0DJ08ZZ Inspection of Upper Intestinal Tract, Via Natural or Artificial Opening Endoscopic (ICD-10-PCS; CPT 43235; principal; 2021-02-02 08:00)
PROC: 0DJD8ZZ Inspection of Lower Intestinal Tract, Via Natural or Artificial Opening Endoscopic (ICD-10-PCS; CPT 45378; 2021-02-02 08:00)
DX: Z12.11 Encounter for screening for malignant neoplasm of colon (principal); Z87.19 Personal history of other diseases of the digestive system; R13.10 Dysphagia, unspecified; K64.8 Other hemorrhoids; E11.9 Type 2 diabetes mellitus without complications; I10 Essential (primary) hypertension; E78.00 Pure hypercholesterolemia, unspecified; I25.10 Atherosclerotic heart disease of native coronary artery without angina pectoris; Z95.1 Presence of aortocoronary bypass graft; I25.2 Old myocardial infarction; K21.9 Gastro-esophageal reflux disease without esophagitis; Z79.84 Long term (current) use of oral hypoglycemic drugs
CPT/HCPCS: 36416; 43239; 45378; 82962; 87077; 96360; 96361; J2704; J7030

== ENCOUNTER 2021-02-09 20:00 | Outpatient (CLI) | payer SELFPAY | END 2021-02-09 20:01 | disposition home or self-care (01) | LOC: SLEEP 02-10 08:26 | PROVIDERS: PCP Family Medicine; Visit Provider Family Medicine | DX: G47.33 Obstructive sleep apnea (adult) (pediatric) (principal) | CPT/HCPCS: 95810 ==

== ENCOUNTER → 2022-11-19 15:18 | Outpatient (BNVA) | payer SELFPAY | PROVIDERS: PCP Family Medicine; Visit Provider Family Medicine | DX: E53.8 Deficiency of other specified B group vitamins (principal); Z13.220 Encounter for screening for lipoid disorders; E11.9 Type 2 diabetes mellitus without complications; Z51.81 Encounter for therapeutic drug level monitoring | CPT/HCPCS: 80053; 80061; 82607; 83036; 85025 ==